=== PATIENT | male | born 1990 | race Caucasian/White ===

== ENCOUNTER → 2018-12-19 | Outpatient (CLI) | payer BC | LOC: GMAH 16:50 | PROVIDERS: ATTEND Family Medicine | DX: Z20.2 Contact with and (suspected) exposure to infections with a predominantly sexual mode of transmission (principal); Z20.6 Contact with and (suspected) exposure to human immunodeficiency virus [HIV] ==

== ENCOUNTER → 2019-07-31 | Outpatient (CLI) | payer BC | LOC: GMA MATASK 17:58 | PROVIDERS: ATTEND Family Medicine | DX: F41.1 Generalized anxiety disorder (principal) ==